=== PATIENT | male | born 1965 | race Caucasian/White ===

== ENCOUNTER 2018-06-14 14:20 | Inpatient (IN) | payer MEDICARE, OTHER ==
[2018-06-14 15:24] LABS: AADO2 Arterial 308.2 mmHg (7.0-24.0); Allen Test ACCEPTAB; Arterial Base Excess 6.3 mmol/L (-3.0-3); Arterial COHb 0.3 % (0.0-3.0); Arterial Fraction of Oxyhgb 76.7 % (93.0-99.0); Arterial HCO3 34.5 mmol/L (22.0-26.0); Arterial MetHb 0.1 % (0.0-1.5); Arterial Total Hemglobin 12.4 g/dl (12.0-18.0); Arterial pCO2 68.5 mmhg (35-45); Blood Gas IEPAP 18/5; Blood Gas PS 13; MODE MASK - BIPAP; Site Right Radial
[2018-06-14] MEDS ORDERED: ONDANSETRON 4 MG INJ IV (16:00)
[2018-06-14] MEDS ORDERED: IBUPROFEN 600 MG TAB PO ×2 (16:00→19:30)
[2018-06-14] MEDS ORDERED: HYDROCODONE/HOMATROPINE 5ML CUP PO ×2 (16:00→19:30)
[2018-06-14] MEDS ORDERED: LORAZEPAM 0.5 MG TAB PO ×2 (16:00→19:30)
[2018-06-14] MEDS: ACCU-CHEK XX ×12 (17:01→23:38)
[2018-06-14] MEDS: INSULIN ASPART [NOVOLOG] 3 ML PEN SC (17:05)
[2018-06-14] MEDS ORDERED: ACCU-CHEK XX (17:05)
[2018-06-14] MEDS ORDERED: NACL 0.9% 3 ML SYG IV (17:30)
[2018-06-14] MEDS ORDERED: INSULIN ASPART [NOVOLOG] 3 ML PEN SC (17:35)
[2018-06-14 17:38] LABS: ADD MAN DIFF? NO
[2018-06-14 17:42] LABS: ABNORMAL IP MESSAGE 1; BASOPHILS % 0.2 % (0.0-2.0); EOSINOPHILS % 0.1 % (0.0-7.0); HEMATOCRIT 36.6 % (42.0-52.0); HEMOGLOBIN 11.1 g/dl (14.0-18.0); LYMPHOCYTES # 0.3 10^3/ul (0.8-2.9); LYMPHOCYTES % 1.4 % (15.0-51.0); MEAN CORPUSCULAR HEMOGLOBIN 30.7 pg (29.0-33.0); MEAN CORPUSCULAR HGB CONC 30.3 g/dl (32.0-37.0); MEAN CORPUSCULAR VOLUME 101.4 fl (82.0-101.0); MEAN PLATELET VOLUME 11.2 fl (7.4-10.4); MONOCYTE # 0.7 10^3/ul (0.3-0.9); MONOCYTES % 3.9 % (0.0-11.0); NEUTROPHIL # 16.2 10^3/ul (1.6-7.5); NEUTROPHILS % 93.3 % (39.0-77.0); NUCLEATED RED BLOOD CELLS% 0.2 /100WBC (0.0-0.0); PLATELET COUNT 198 10^3/UL (140-415); POSITIVE DIFF @See below; RED BLOOD COUNT 3.61 10^6/ul (4.70-6.10)
[2018-06-14 17:42] LABS: WHITE BLOOD COUNT 17.4 10^3/ul (4.8-10.8)
[2018-06-14 18:00] LABS: LACTIC ACID 1.3 mmol/L (0.5-2.0)
[2018-06-14] MEDS ORDERED: FUROSEMIDE 20 MG TAB PO (18:00)
[2018-06-14] MEDS: FUROSEMIDE 40 MG INJ IV (18:00)
[2018-06-14] MEDS: METHYLPREDNISOLONE 125 MG INJ IV (18:00)
[2018-06-14 18:02] LABS: ALANINE AMINOTRANSFERASE 43 IU/L (13-69); ALBUMIN 3.2 g/dl (3.3-4.9); ALBUMIN/GLOBULIN RATIO 0.94; ALKALINE PHOSPHATASE 68 IU/L (42-121); ANION GAP 10 (8-16); ASPARTATE AMINO TRANSFERASE 20 IU/L (15-46); BILIRUBIN,INDIRECT 0.4 mg/dl (0-1.1); BILIRUBIN,TOTAL 0.4 mg/dl (0.2-1.3); BLOOD UREA NITROGEN 22 mg/dl (7-20); CALCIUM 8.9 mg/dl (8.4-10.2); CARBON DIOXIDE 36 mmol/L (21-31); CHLORIDE 98 mmol/L (97-110); CREATININE 0.87 mg/dl (0.61-1.24); GLUCOSE 134 mg/dl (70-220); INR 1.01; PARTIAL THROMBOPLASTIN TIME 27.8 Sec (25.0-35.0); POTASSIUM 4.3 mmol/L (3.5-5.1); PROTIME 13.4 Sec (11.9-14.9); SODIUM 140 mmol/L (135-144); TOTAL PROTEIN 6.6 g/dl (6.1-8.1)
[2018-06-14 18:17] LABS: T3 UPTAKE 42.6 % (23.5-40.5); T4 (THYROXINE) 9.4 ug/dl (5.5-11.0)
[2018-06-14] MEDS ORDERED: DEXTROSE 50% 50 ML SYRINGE IV ×4 (18:30→21:00)
[2018-06-14] MEDS: ALBUTEROL/IPRATROPIUM (NEB) 3 ML AMP HHN (19:36)
[2018-06-14] MEDS: BUDESONIDE (NEB) 0.5MG/2ML AMP HHN (19:45)
[2018-06-14] MEDS: DEXTROSE 5%-0.45% NACL 500 ML IV (20:10)
[2018-06-14] MEDS: TAMSULOSIN (SR) 0.4 MG CAP PO (20:47)
[2018-06-14] MEDS: ATORVASTATIN 80 MG TAB PO (20:47)
[2018-06-14] MEDS: FAMOTIDINE 20 MG INJ IV (20:47)
[2018-06-14] MEDS: DOCUSATE SODIUM 100 MG CAP PO (20:47)
[2018-06-14] MEDS ORDERED: GLUCAGON 1 MG INJ IM (21:00)
[2018-06-14] MEDS ORDERED: GLUCOSE GEL 15 GRAM TUBE BUCCAL (21:00)
[2018-06-14] MEDS ORDERED: TOPIRAMATE 25 MG TAB PO (21:00)
[2018-06-14] MEDS ORDERED: GLUCOSE GEL 15 GRAM TUBE PO ×2 (21:00)
[2018-06-14] MEDS: INSULIN HUMAN REGULAR 100 UNIT in SOD CHLORIDE 0.9% 99 ML IV (21:27)
[2018-06-14] MEDS: TOPIRAMATE 25 MG TAB PO (21:54)
[2018-06-14] MEDS ORDERED: CEFTAZIDIME 1GM/50 ML (PMX) 50 ML IVPB (22:00)
[2018-06-14] MEDS: CEFTAZIDIME 1GM/50 ML (PMX) 50 ML IVPB (22:07)
[2018-06-14] MEDS: HEPARIN 5,000 UNIT/0.5 ML VIAL SC (22:14)
[2018-06-14] MEDS: IPRATROPIUM (NEB) 0.5 MG/2.5 ML AMP HHN (23:07)
[2018-06-15] MEDS: ACCU-CHEK XX ×34 (00:31→23:52)
[2018-06-15] MEDS: METHYLPREDNISOLONE 125 MG INJ IV ×5 (00:31→23:54)
[2018-06-15] MEDS: ALBUTEROL/IPRATROPIUM (NEB) 3 ML AMP HHN ×4 (01:20→19:18)
[2018-06-15] MEDS ORDERED: ACCU-CHEK XX (02:00)
[2018-06-15 05:23] LABS: ADD MAN DIFF? NO
[2018-06-15 05:36] LABS: WHITE BLOOD COUNT 16.5 10^3/ul (4.8-10.8)
[2018-06-15 05:36] LABS: ABNORMAL IP MESSAGE 1; BASOPHILS % 0.1 % (0.0-2.0); EOSINOPHILS % 0.1 % (0.0-7.0); HEMATOCRIT 36.3 % (42.0-52.0); LYMPHOCYTES # 0.2 10^3/ul (0.8-2.9); LYMPHOCYTES % 1.3 % (15.0-51.0); MEAN CORPUSCULAR HEMOGLOBIN 30.8 pg (29.0-33.0); MEAN CORPUSCULAR HGB CONC 30.3 g/dl (32.0-37.0); MEAN CORPUSCULAR VOLUME 101.7 fl (82.0-101.0); MEAN PLATELET VOLUME 11.4 fl (7.4-10.4); MONOCYTE # 0.3 10^3/ul (0.3-0.9); MONOCYTES % 1.5 % (0.0-11.0); NEUTROPHIL # 15.9 10^3/ul (1.6-7.5); NUCLEATED RED BLOOD CELLS% 0.1 /100WBC (0.0-0.0); PLATELET COUNT 203 10^3/UL (140-415); POSITIVE DIFF @See below; RED BLOOD COUNT 3.57 10^6/ul (4.70-6.10)
[2018-06-15 06:00] LABS: ANION GAP 10 (8-16); BLOOD UREA NITROGEN 24 mg/dl (7-20); CALCIUM 8.9 mg/dl (8.4-10.2); CARBON DIOXIDE 34 mmol/L (21-31); CHLORIDE 103 mmol/L (97-110); CREATININE 0.76 mg/dl (0.61-1.24); GLUCOSE 92 mg/dl (70-220); MAGNESIUM 2.3 mg/dl (1.7-2.5); PHOSPHORUS 4.2 mg/dl (2.5-4.9); POTASSIUM 4.1 mmol/L (3.5-5.1); SODIUM 143 mmol/L (135-144)
[2018-06-15] MEDS ORDERED: LEVOTHYROXINE 100 MCG VIAL IV (06:00)
[2018-06-15] MEDS ORDERED: LEVOTHYROXINE 125 MCG TAB PO (06:00)
[2018-06-15] MEDS ORDERED: PANTOPRAZOLE (EC) 40 MG TAB PO (06:00)
[2018-06-15] MEDS: PANTOPRAZOLE 40 MG INJ IV (06:21)
[2018-06-15] MEDS: LEVOTHYROXINE 125 MCG TAB PO (06:22)
[2018-06-15] MEDS: HEPARIN 5,000 UNIT/0.5 ML VIAL SC ×3 (06:24→21:23)
[2018-06-15] MEDS: CEFTAZIDIME 1GM/50 ML (PMX) 50 ML IVPB ×3 (06:25→21:21)
[2018-06-15] MEDS: FUROSEMIDE 40 MG INJ IV ×2 (06:25→17:08)
[2018-06-15 06:31] LABS: AMPHETAMINE/METHAMPHETAMINE NEGATIVE (NEGATIVE); BARBITURATES NEGATIVE (NEGATIVE); BENZODIAZEPINES NEGATIVE (NEGATIVE); CANNABINOIDS NEGATIVE (NEGATIVE); COCAINE NEGATIVE (NEGATIVE); OPIATES NEGATIVE (NEGATIVE)
[2018-06-15] MEDS ORDERED: INSULIN ASPART [NOVOLOG] 3 ML PEN SC ×2 (07:35→11:30)
[2018-06-15 07:50] LABS: AADO2 Arterial 585.1 mmHg (7.0-24.0); Allen Test ACCEPTAB; Arterial Base Excess 5.2 mmol/L (-3.0-3); Arterial Blood Gas Oxygen Sat 81.8 mmHG (95.0-98.0); Arterial COHb 0.9 % (0.0-3.0); Arterial Fraction of Oxyhgb 80.8 % (93.0-99.0); Arterial HCO3 34.5 mmol/L (22.0-26.0); Arterial MetHb 0.3 % (0.0-1.5); Arterial Total Hemglobin 12.6 g/dl (12.0-18.0); Arterial pCO2 77.5 mmhg (35-45); Blood Gas IEPAP 18/5; Blood Gas PS 13; MODE MASK - BIPAP; Site Right Radial
[2018-06-15] MEDS ORDERED: NPH, HUMAN INSULIN ISOPHANE 3ML VIAL SC (08:00)
[2018-06-15] MEDS ORDERED: EMPAGLIFLOZIN 10 MG TABLET PO (08:00)
[2018-06-15] MEDS: FAMOTIDINE 20 MG INJ IV ×2 (08:04→21:21)
[2018-06-15] MEDS: DOCUSATE SODIUM 100 MG CAP PO ×2 (08:04→21:21)
[2018-06-15] MEDS: CLOPIDOGREL 75 MG TAB PO (08:30)
[2018-06-15] MEDS: ASPIRIN 81 MG TAB PO (08:30)
[2018-06-15] MEDS: ACETAZOLAMIDE 500 MG INJ IV (08:30)
[2018-06-15] MEDS: BUDESONIDE (NEB) 0.5MG/2ML AMP HHN ×2 (08:58→19:18)
[2018-06-15] MEDS: NPH, HUMAN INSULIN ISOPHANE 3ML VIAL SC (09:00)
[2018-06-15] MEDS ORDERED: predniSONE 10 MG TAB PO (09:00)
[2018-06-15] MEDS: DEXTROSE 5%-0.45% NACL 500 ML IV (17:54)
[2018-06-15] MEDS: ATORVASTATIN 80 MG TAB PO (21:21)
[2018-06-15] MEDS: TAMSULOSIN (SR) 0.4 MG CAP PO (21:21)
[2018-06-15] MEDS: TOPIRAMATE 25 MG TAB PO (21:21)
[2018-06-16] MEDS: ALBUTEROL/IPRATROPIUM (NEB) 3 ML AMP HHN ×5 (01:09→19:59)
[2018-06-16] MEDS: ACCU-CHEK XX ×24 (01:19→23:36)
[2018-06-16] MEDS: FUROSEMIDE 40 MG INJ IV ×2 (05:13→18:43)
[2018-06-16] MEDS: METHYLPREDNISOLONE 125 MG INJ IV ×4 (05:14→23:34)
[2018-06-16] MEDS: LEVOTHYROXINE 125 MCG TAB PO (05:14)
[2018-06-16] MEDS: PANTOPRAZOLE 40 MG INJ IV (05:14)
[2018-06-16] MEDS: CEFTAZIDIME 1GM/50 ML (PMX) 50 ML IVPB ×3 (05:14→21:39)
[2018-06-16] MEDS: HEPARIN 5,000 UNIT/0.5 ML VIAL SC ×3 (05:16→21:47)
[2018-06-16 05:37] LABS: ADD MAN DIFF? NO
[2018-06-16 05:47] LABS: WHITE BLOOD COUNT 15.3 10^3/ul (4.8-10.8)
[2018-06-16 05:47] LABS: ABNORMAL IP MESSAGE 1; BASOPHILS % 0.1 % (0.0-2.0); HEMATOCRIT 39.2 % (42.0-52.0); HEMOGLOBIN 11.8 g/dl (14.0-18.0); LYMPHOCYTES # 0.2 10^3/ul (0.8-2.9); LYMPHOCYTES % 1.2 % (15.0-51.0); MEAN CORPUSCULAR HEMOGLOBIN 30.3 pg (29.0-33.0); MEAN CORPUSCULAR HGB CONC 30.1 g/dl (32.0-37.0); MEAN CORPUSCULAR VOLUME 100.5 fl (82.0-101.0); MEAN PLATELET VOLUME 11.7 fl (7.4-10.4); MONOCYTE # 0.3 10^3/ul (0.3-0.9); MONOCYTES % 2.2 % (0.0-11.0); NEUTROPHIL # 14.7 10^3/ul (1.6-7.5); NEUTROPHILS % 95.8 % (39.0-77.0); NUCLEATED RED BLOOD CELLS # 0.1 10^3/ul (0.0-0.0); NUCLEATED RED BLOOD CELLS% 0.3 /100WBC (0.0-0.0); PLATELET COUNT 264 10^3/UL (140-415); POSITIVE DIFF @See below; RED CELL DISTRIBUTION WIDTH 15.3 % (11.5-14.5)
[2018-06-16 06:18] LABS: ANION GAP 11 (8-16); BLOOD UREA NITROGEN 34 mg/dl (7-20); CALCIUM 9.2 mg/dl (8.4-10.2); CARBON DIOXIDE 37 mmol/L (21-31); CHLORIDE 100 mmol/L (97-110); CREATININE 0.85 mg/dl (0.61-1.24); GLUCOSE 149 mg/dl (70-220); MAGNESIUM 2.6 mg/dl (1.7-2.5); PHOSPHORUS 4.8 mg/dl (2.5-4.9); POTASSIUM 3.7 mmol/L (3.5-5.1); SODIUM 144 mmol/L (135-144)
[2018-06-16 08:25] LABS: AADO2 Arterial 579.8 mmHg (7.0-24.0); Allen Test ACCEPTAB; Arterial Base Excess 10.5 mmol/L (-3.0-3); Arterial Blood Gas Oxygen Sat 78.6 mmHG (95.0-98.0); Arterial COHb 0.4 % (0.0-3.0); Arterial Fraction of Oxyhgb 78.1 % (93.0-99.0); Arterial HCO3 40.4 mmol/L (22.0-26.0); Arterial MetHb 0.2 % (0.0-1.5); Arterial Total Hemglobin 13.3 g/dl (12.0-18.0); Arterial pCO2 84.6 mmhg (35-45); Blood Gas IEPAP 18/5; Blood Gas PS 13; MODE MASK - BIPAP; Site Right Radial
[2018-06-16] MEDS: BUDESONIDE (NEB) 0.5MG/2ML AMP HHN ×2 (08:50→19:58)
[2018-06-16] MEDS: DOCUSATE SODIUM 100 MG CAP PO ×2 (09:00→21:00)
[2018-06-16] MEDS: ASPIRIN 81 MG TAB PO (09:00)
[2018-06-16] MEDS: CLOPIDOGREL 75 MG TAB PO (09:00)
[2018-06-16] MEDS: ACETAZOLAMIDE 500 MG INJ IV (09:12)
[2018-06-16] MEDS: FAMOTIDINE 20 MG INJ IV ×2 (09:12→21:39)
[2018-06-16] MEDS: NPH, HUMAN INSULIN ISOPHANE 3ML VIAL SC (09:18)
[2018-06-16] MEDS: DEXTROSE 10%/0.2% NACL 1,000 ML IV (11:15)
[2018-06-16] MEDS: LIDOCAINE 1% (MPF) 5 ML VIAL SC (16:29)
[2018-06-16 19:58] LABS: AADO2 Arterial 595.1 mmHg (7.0-24.0); Allen Test ACCEPTAB; Arterial Blood Gas Oxygen Sat 81.1 mmHG (95.0-98.0); Arterial COHb 0.2 % (0.0-3.0); Arterial Fraction of Oxyhgb 80.8 % (93.0-99.0); Arterial HCO3 39.3 mmol/L (22.0-26.0); Arterial MetHb 0.2 % (0.0-1.5); Arterial Total Hemglobin 13.2 g/dl (12.0-18.0); Arterial pCO2 70.5 mmhg (35-45); Blood Gas IEPAP 22/5; Blood Gas PS 17; MODE MASK - BIPAP; Site Right Radial
[2018-06-16] MEDS: TOPIRAMATE 25 MG TAB PO (21:00)
[2018-06-16] MEDS: TAMSULOSIN (SR) 0.4 MG CAP PO (21:00)
[2018-06-16] MEDS: ATORVASTATIN 80 MG TAB PO (21:00)
[2018-06-17] MEDS: ACCU-CHEK XX ×25 (01:23→23:46)
[2018-06-17] MEDS: ALBUTEROL/IPRATROPIUM (NEB) 3 ML AMP HHN ×4 (01:28→20:00)
[2018-06-17] MEDS: PANTOPRAZOLE 40 MG INJ IV (05:44)
[2018-06-17] MEDS: LEVOTHYROXINE 125 MCG TAB PO (05:44)
[2018-06-17] MEDS: FUROSEMIDE 40 MG INJ IV ×2 (05:44→18:18)
[2018-06-17] MEDS: METHYLPREDNISOLONE 125 MG INJ IV ×4 (05:44→23:46)
[2018-06-17] MEDS: HEPARIN 5,000 UNIT/0.5 ML VIAL SC ×3 (05:49→22:00)
[2018-06-17] MEDS: CEFTAZIDIME 1GM/50 ML (PMX) 50 ML IVPB ×3 (05:51→21:28)
[2018-06-17] MEDS: BUDESONIDE (NEB) 0.5MG/2ML AMP HHN ×2 (08:32→20:19)
[2018-06-17] MEDS: DEXTROSE 10%/0.2% NACL 1,000 ML IV (09:00)
[2018-06-17] MEDS: DOCUSATE SODIUM 100 MG CAP PO ×2 (09:11→21:00)
[2018-06-17] MEDS: FAMOTIDINE 20 MG INJ IV ×2 (09:11→21:27)
[2018-06-17] MEDS: ASPIRIN 81 MG TAB PO (09:11)
[2018-06-17] MEDS: CLOPIDOGREL 75 MG TAB PO (09:11)
[2018-06-17] MEDS: ACETAZOLAMIDE 500 MG INJ IV (09:11)
[2018-06-17] MEDS: NPH, HUMAN INSULIN ISOPHANE 3ML VIAL SC (09:13)
[2018-06-17] MEDS: IPRATROPIUM (NEB) 0.5 MG/2.5 ML AMP HHN (12:32)
[2018-06-17 13:40] LABS: AADO2 Arterial 591.2 mmHg (7.0-24.0); Allen Test ACCEPTAB; Arterial Base Excess 14.5 mmol/L (-3.0-3); Arterial Blood Gas Oxygen Sat 79.8 mmHG (95.0-98.0); Arterial COHb 0.4 % (0.0-3.0); Arterial Fraction of Oxyhgb 79.3 % (93.0-99.0); Arterial HCO3 43.3 mmol/L (22.0-26.0); Arterial MetHb 0.2 % (0.0-1.5); Arterial Total Hemglobin 13.7 g/dl (12.0-18.0); Arterial pCO2 74.5 mmhg (35-45); Blood Gas IEPAP 22/8; Blood Gas PS 14; MODE MASK - BIPAP; Site Right Radial
[2018-06-17] MEDS: PROPOFOL 100 ML IV ×2 (14:36→18:18)
[2018-06-17] MEDS ORDERED: NORepinephrine 8MG/250 ML (PMX 250 ML (15:40)
[2018-06-17] MEDS ORDERED: NORepinephrine 8MG/250 ML (PMX 250 ML IV (16:00)
[2018-06-17 16:32] LABS: AADO2 Arterial 585.2 mmHg (7.0-24.0); Allen Test ACCEPTAB; Arterial Base Excess 3.5 mmol/L (-3.0-3); Arterial Blood Gas Oxygen Sat 50.7 mmHG (95.0-98.0); Arterial COHb 1.2 % (0.0-3.0); Arterial Fraction of Oxyhgb 49.9 % (93.0-99.0); Arterial HCO3 34.9 mmol/L (22.0-26.0); Arterial MetHb 0.3 % (0.0-1.5); Arterial Total Hemglobin 14.8 g/dl (12.0-18.0); Arterial pCO2 90.9 mmhg (35-45); MODE VENT - AC; Site Left Radial
[2018-06-17] MEDS: SOD CHLORIDE 0.9% 1,000 ML IV (16:51)
[2018-06-17 17:53] LABS: AADO2 Arterial 598.4 mmHg (7.0-24.0); Allen Test ACCEPTAB; Arterial Base Excess 0.6 mmol/L (-3.0-3); Arterial Blood Gas Oxygen Sat 73.4 mmHG (95.0-98.0); Arterial COHb 0.3 % (0.0-3.0); Arterial HCO3 29.5 mmol/L (22.0-26.0); Arterial MetHb 0.3 % (0.0-1.5); Arterial Total Hemglobin 13.8 g/dl (12.0-18.0); Arterial pCO2 67.8 mmhg (35-45); MODE VENT - AC; Site Left Radial
[2018-06-17] MEDS: ATORVASTATIN 80 MG TAB PO (21:00)
[2018-06-17] MEDS: TOPIRAMATE 25 MG TAB PO (21:00)
[2018-06-17 21:58] LABS: ADD UMIC YES; UR AMORPHOUS CRYSTAL FEW /HPF (NONE SEEN); UR ASCORBIC ACID NEGATIVE (NEGATIVE); UR BACTERIA FEW /HPF (NONE SEEN); UR BILIRUBIN (Dip) NEGATIVE (NEGATIVE); UR BLOOD (Dip) 2+ mg/dL (NEGATIVE); UR CLARITY SLIGHTLY CLOUDY (CLEAR); UR COLOR YELLOW (YELLOW); UR GLUCOSE (Dip) 2+ mg/dL (NEGATIVE); UR KETONES (Dip) NEGATIVE (NEGATIVE); UR LEUKOCYTE ESTERASE (Dip) NEGATIVE Leu/ul (NEGATIVE); UR MUCUS FEW /HPF (NONE SEEN); UR NITRITE (Dip) NEGATIVE (NEGATIVE); UR RBC 43 /HPF (0-5); UR SPECIFIC GRAVITY (Dip) 1.016 (1.003-1.030); UR TOTAL PROTEIN (Dip) 2+ mg/dl (NEGATIVE); UR UROBILINOGEN (Dip) NEGATIVE (NEGATIVE); UR WBC 8 /HPF (0-5)
[2018-06-17 23:55] LABS: ANION GAP 8 (8-16); BLOOD UREA NITROGEN 51 mg/dl (7-20); CALCIUM 8.8 mg/dl (8.4-10.2); CARBON DIOXIDE 38 mmol/L (21-31); CHLORIDE 102 mmol/L (97-110); CREATININE 1.51 mg/dl (0.61-1.24); GLUCOSE 175 mg/dl (70-220); MAGNESIUM 2.6 mg/dl (1.7-2.5); POTASSIUM 3.3 mmol/L (3.5-5.1); SODIUM 145 mmol/L (135-144)
[2018-06-18] MEDS: PROPOFOL 100 ML IV ×5 (00:21→21:54)
[2018-06-18] MEDS: POTASSIUM CHLORIDE 100 ML IVPB ×3 (00:31→03:45)
[2018-06-18] MEDS: IPRATROPIUM (HFA) 12.9 GM INHALER INH ×4 (01:05→19:50)
[2018-06-18] MEDS: ALBUTEROL HFA 8 GM INHALER INH ×4 (01:05→19:51)
[2018-06-18] MEDS: ACCU-CHEK XX ×22 (02:14→23:00)
[2018-06-18] MEDS: FUROSEMIDE 40 MG INJ IV ×2 (05:03→17:42)
[2018-06-18] MEDS: PANTOPRAZOLE 40 MG INJ IV (05:03)
[2018-06-18] MEDS: CEFTAZIDIME 1GM/50 ML (PMX) 50 ML IVPB ×3 (05:03→21:10)
[2018-06-18] MEDS: LEVOTHYROXINE 125 MCG TAB PO (05:03)
[2018-06-18] MEDS: METHYLPREDNISOLONE 125 MG INJ IV ×3 (05:03→17:42)
[2018-06-18] MEDS: HEPARIN 5,000 UNIT/0.5 ML VIAL SC ×3 (05:04→21:25)
[2018-06-18 05:50] LABS: ADD MAN DIFF? NO
[2018-06-18 05:53] LABS: ABNORMAL IP MESSAGE 1; BASOPHILS % 0.1 % (0.0-2.0); HEMATOCRIT 38.8 % (42.0-52.0); LYMPHOCYTES # 0.1 10^3/ul (0.8-2.9); LYMPHOCYTES % 0.5 % (15.0-51.0); MEAN CORPUSCULAR HEMOGLOBIN 30.5 pg (29.0-33.0); MEAN CORPUSCULAR HGB CONC 30.9 g/dl (32.0-37.0); MEAN CORPUSCULAR VOLUME 98.5 fl (82.0-101.0); MEAN PLATELET VOLUME 12.4 fl (7.4-10.4); MONOCYTE # 0.9 10^3/ul (0.3-0.9); MONOCYTES % 3.2 % (0.0-11.0); NEUTROPHIL # 25.5 10^3/ul (1.6-7.5); NEUTROPHILS % 95.2 % (39.0-77.0); NUCLEATED RED BLOOD CELLS # 0.3 10^3/ul (0.0-0.0); PLATELET COUNT 255 10^3/UL (140-415); POSITIVE DIFF @See below; RED BLOOD COUNT 3.94 10^6/ul (4.70-6.10); RED CELL DISTRIBUTION WIDTH 15.8 % (11.5-14.5)
[2018-06-18 05:53] LABS: WHITE BLOOD COUNT 26.8 10^3/ul (4.8-10.8)
[2018-06-18 06:14] LABS: ANION GAP 10 (8-16); BLOOD UREA NITROGEN 55 mg/dl (7-20); CALCIUM 8.9 mg/dl (8.4-10.2); CARBON DIOXIDE 37 mmol/L (21-31); CHLORIDE 104 mmol/L (97-110); CREATININE 1.32 mg/dl (0.61-1.24); GLUCOSE 127 mg/dl (70-220); MAGNESIUM 2.7 mg/dl (1.7-2.5); PHOSPHORUS 3.7 mg/dl (2.5-4.9); POTASSIUM 4.1 mmol/L (3.5-5.1); SODIUM 147 mmol/L (135-144)
[2018-06-18] MEDS: DOCUSATE SODIUM 100 MG CAP PO ×2 (08:18→19:31)
[2018-06-18] MEDS: ASPIRIN 81 MG TAB PO (08:18)
[2018-06-18] MEDS: ACETAZOLAMIDE 500 MG INJ IV (08:18)
[2018-06-18] MEDS: DEXTROSE 10%/0.2% NACL 1,000 ML IV ×2 (08:18→11:28)
[2018-06-18] MEDS: FAMOTIDINE 20 MG INJ IV ×2 (08:18→20:06)
[2018-06-18] MEDS: CLOPIDOGREL 75 MG TAB PO (08:18)
[2018-06-18] MEDS: NPH, HUMAN INSULIN ISOPHANE 3ML VIAL SC (08:20)
[2018-06-18] MEDS: BUDESONIDE (NEB) 0.5MG/2ML AMP HHN ×2 (08:53→19:51)
[2018-06-18] MEDS: SOD CHLORIDE 0.9% 1,000 ML IV (09:05)
[2018-06-18 09:12] LABS: AADO2 Arterial 600.7 mmHg (7.0-24.0); Allen Test ACCEPTAB; Arterial Base Excess 10.1 mmol/L (-3.0-3); Arterial Blood Gas Oxygen Sat 89.5 mmHG (95.0-98.0); Arterial COHb 0.3 % (0.0-3.0); Arterial Fraction of Oxyhgb 89.1 % (93.0-99.0); Arterial HCO3 35.9 mmol/L (22.0-26.0); Arterial MetHb 0.2 % (0.0-1.5); Arterial Total Hemglobin 12.9 g/dl (12.0-18.0); Arterial pCO2 53.1 mmhg (35-45); MODE VENT - AC; Site Left Radial
[2018-06-18] MEDS: MIDAZOLAM (DRIP) 50 mg/50 mL 50 ML IV ×2 (11:28→17:40)
[2018-06-18] MEDS: TOPIRAMATE 25 MG TAB PO (20:06)
[2018-06-18] MEDS: ATORVASTATIN 80 MG TAB PO (20:06)
[2018-06-18 22:22] LABS: AADO2 Arterial 592.9 mmHg (7.0-24.0); Allen Test ACCEPTAB; Arterial Base Excess 7.9 mmol/L (-3.0-3); Arterial Blood Gas Oxygen Sat 74.8 mmHG (95.0-98.0); Arterial COHb 0.1 % (0.0-3.0); Arterial Fraction of Oxyhgb 74.5 % (93.0-99.0); Arterial HCO3 36.7 mmol/L (22.0-26.0); Arterial MetHb 0.3 % (0.0-1.5); Arterial Total Hemglobin 13.7 g/dl (12.0-18.0); Arterial pCO2 72.5 mmhg (35-45); MODE VENT - AC; Site Right Radial
[2018-06-19] MEDS ORDERED: EPINEPHrine 0.1 MG/ML SYG
[2018-06-19] MEDS ORDERED: ADENOSINE
[2018-06-19] MEDS ORDERED: AMIODARONE 150 MG INJ
[2018-06-19] MEDS ORDERED: DOPamine-D5W 1.6 MG/ML 250 ML
[2018-06-19] MEDS ORDERED: ATROPINE 1 MG/10 ML SYRINGE
[2018-06-19] MEDS ORDERED: NA BICARBONATE 8.4% 50 ML SYG
[2018-06-19] MEDS: METHYLPREDNISOLONE 125 MG INJ IV (00:19)
[2018-06-19] MEDS: ACCU-CHEK XX ×4 (00:22→03:00)
[2018-06-19] MEDS ORDERED: NORepinephrine 8MG/250 ML (PMX 250 ML (01:42)
[2018-06-19] MEDS: ALBUTEROL HFA 8 GM INHALER INH (01:43)
[2018-06-19] MEDS: IPRATROPIUM (HFA) 12.9 GM INHALER INH (01:43)
[2018-06-19] MEDS ORDERED: PHENYLephrine 10 MG INJ (02:09)
[2018-06-19] MEDS ORDERED: PHENYLephrine 40 MG in DEXTROSE 5% 496 ML IV (02:30)
[2018-06-19] MEDS: VASOPRESSIN 60 UNIT in DEXTROSE 5% 60 ML IV (03:08)
== END 2018-06-19 03:44 | disposition expired | DRG 208 ==
LOC: ICU 14:20
PROC: 5A09457 Assistance with Respiratory Ventilation, 24-96 Consecutive Hours, Continuous Positive Airway Pressure (ICD-10-PCS; 2018-06-14)
PROC: 02HV33Z Insertion of Infusion Device into Superior Vena Cava, Percutaneous Approach (ICD-10-PCS; 2018-06-16)
PROC: 5A1945Z Respiratory Ventilation, 24-96 Consecutive Hours (ICD-10-PCS; principal; 2018-06-17)
PROC: 0BH17EZ Insertion of Endotracheal Airway into Trachea, Via Natural or Artificial Opening (ICD-10-PCS; 2018-06-17)
PROC: 0T7D7ZZ Dilation of Urethra, Via Natural or Artificial Opening (ICD-10-PCS; 2018-06-17)
PROC: 0T9B70Z Drainage of Bladder with Drainage Device, Via Natural or Artificial Opening (ICD-10-PCS; 2018-06-17)
PROC: 5A12012 Performance of Cardiac Output, Single, Manual (ICD-10-PCS; 2018-06-19)
DX: J84.112 Idiopathic pulmonary fibrosis (principal); J96.21 Acute and chronic respiratory failure with hypoxia; J18.9 Pneumonia, unspecified organism; J96.22 Acute and chronic respiratory failure with hypercapnia; N17.9 Acute kidney failure, unspecified; I47.2 Ventricular tachycardia; R57.9 Shock, unspecified; E11.9 Type 2 diabetes mellitus without complications; E78.5 Hyperlipidemia, unspecified; E03.9 Hypothyroidism, unspecified; E66.09 Other obesity due to excess calories; I10 Essential (primary) hypertension; I49.1 Atrial premature depolarization; I95.9 Hypotension, unspecified; I46.8 Cardiac arrest due to other underlying condition; N40.0 Benign prostatic hyperplasia without lower urinary tract symptoms; R60.1 Generalized edema; Z68.31 Body mass index [BMI] 31.0-31.9, adult
CPT/HCPCS: 31500; 36569; 36600; 71045; 76937; 80048; 80053; 80307; 81001; 82803; 82962; 83605; 83735; 84100; 84436; 84479; 85025; 85610; 85730; 87086; 92950; 94002; 94003; 94640; 94660; 94770; J1120